=== PATIENT | female | born 1955 | race Caucasian/White ===

== ENCOUNTER 2021-06-17 17:02 | Emergency (ER) | payer BC, MEDICARE ==
[~2021-06-17] VITALS: Ht 165.1 cm; Wt 81.0 kg
[2021-06-17 19:28] LABS: BASO % 1 % (0-3); EOS # 0.1 x10^3/uL (0.0-0.7); EOS % 3 % (0-3); HEMATOCRIT 38.8 % (36.0-47.0); HEMOGLOBIN 12.9 g/dL (12.0-15.5); LYMPH # 0.9 x10^3/uL (1.0-4.8); LYMPH % 32 % (24-48); MEAN CORPUSCULAR HEMOGLOBIN 30 pg (25-35); MEAN CORPUSCULAR HGB CONC 33 g/dL (31-37); MEAN CORPUSCULAR VOLUME 91 fL (79-100); MONO # 0.4 x10^3/uL (0.0-1.1); MONO % 16 % (0-9); NEUT # 1.3 x10^3uL (1.8-7.7); NEUT % 48 % (31-73); PLATELET COUNT 168 x10^3/uL (140-400); RED BLOOD COUNT 4.26 x10^6/uL (3.50-5.40); RED CELL DISTRIBUTION WIDTH 12.3 % (11.5-14.5); WHITE BLOOD COUNT 2.8 x10^3/uL (4.0-11.0)
[2021-06-17 19:42] LABS: CALCIUM 8.6 mg/dL (8.5-10.1); CREATININE 0.9 mg/dL (0.6-1.0); GFR 62.6; POTASSIUM 4.2 mmol/L (3.5-5.1)
--- NOTE | 2021-06-17 19:44 | RAD ---
INDICATION: Reason: sob, cough / Spl. Instructions: / History: COMPARISON: None. FINDINGS: Single view of chest obtained. Left lung base is not well evaluated secondary to overlying cardiac silhouette obscuring. Degenerative changes the spine with osteophyte formation. Degenerative changes spine IMPRESSION: * Left lung base is not well evaluated secondary to overlying cardiac silhouette obscuring but no de finite focal airspace consolidation elsewhere in the lungs. Electronically signed by: Randy Meehan MD (06/17/2021 7:42 PM) [id number]
--- NOTE | 2021-06-17 19:59 | PHYS DOC ---
Past History Past Surgical History: Cholecystectomy, Hysterectomy (CARMEN GUNN APRN) Alcohol Use: None (CARMEN GUNN APRN) General Adult EDM: Chief Complaint: COUGH HPI: HPI: Patient is a 65-year-old female presents with cough for 1 week. Patient states that she tested positive yesterday for Covid. "Me and my has been both tested positive and my daughter and son-in-law all are sick as well". Denies fever. Reports productive cough. Denies shortness of breath or chest pain. History of hypertension and diabetes. (CARMEN GUNN APRN) Review of Systems: Review of Systems: Constitutional: Denies fever or chills Eyes: Denies change in visual acuity HENT: Denies nasal congestion or sore throat Respiratory: Reports cough. Denies shortness of breath Cardiovascular: Denies chest pain or edema GI: Denies abdominal pain, nausea, vomiting, bloody stools or diarrhea : Denies dysuria Musculoskeletal: Denies back pain or joint pain Integument: Denies rash Neurologic: Denies headache, focal weakness or sensory changes Endocrine: Denies polyuria or polydipsia Lymphatic: Denies swollen glands Psychiatric: Denies depression or anxiety (CARMEN GUNN APRN) Allergies: Allergies: Allergies Coded Allergies Type Severity Reaction Last Updated Verified erythromycin base Allergy Unknown 06/17/21 Yes ketorolac Allergy Unknown 06/17/21 Yes sulfamethoxazole Allergy Unknown 06/17/21 Yes trimethoprim Allergy Unknown 06/17/21 Yes (CARMEN GUNN APRN) Physical Exam: PE: Constitutional: Well developed, well nourished, no acute distress, non-toxic appearance. [] HENT: Normocephalic, atraumatic, bilateral external ears normal, oropharynx moist, no oral exudates, nose normal. [] Eyes: PERRLA, EOMI, conjunctiva normal, no discharge. [] Neck: Normal range of motion, no tenderness, supple, no stridor. [] Cardiovascular:Heart rate regular rhythm, no murmur [] Lungs & Thorax: Bilateral breath sounds clear to auscultation [] Abdomen: Bowel sounds normal, soft, no tenderness, no masses, no pulsatile masses. [] Skin: Warm, dry, no erythema, no rash. [] Back: No tenderness, no CVA tenderness. [] Extremities: No tenderness, no cyanosis, no clubbing, ROM intact, no edema. [] Neurologic: Alert and oriented X 3, normal motor function, normal sensory function, no focal deficits noted. [] Psychologic: Affect normal, judgement normal, mood normal. [] (CARMEN GUNN APRN) Current Patient Data: Labs: Laboratory Tests Test 06/17/21 19:16 White Blood Count 2.8 x10^3/uL (4.0-11.0) L Red Blood Count 4.26 x10^6/uL (3.50-5.40) Hemoglobin 12.9 g/dL (12.0-15.5) Hematocrit 38.8 % (36.0-47.0) Mean Corpuscular Volume 91 fL (79-100) Mean Corpuscular Hemoglobin 30 pg (25-35) Mean Corpuscular Hemoglobin Concent 33 g/dL (31-37) Red Cell Distribution Width 12.3 % (11.5-14.5) Platelet Count 168 x10^3/uL (140-400) Neutrophils (%) (Auto) 48 % (31-73) Lymphocytes (%) (Auto) 32 % (24-48) Monocytes (%) (Auto) 16 % (0-9) H Eosinophils (%) (Auto) 3 % (0-3) Basophils (%) (Auto) 1 % (0-3) Neutrophils # (Auto) 1.3 x10^3uL (1.8-7.7) L Lymphocytes # (Auto) 0.9 x10^3/uL (1.0-4.8) L Monocytes # (Auto) 0.4 x10^3/uL (0.0-1.1) Eosinophils # (Auto) 0.1 x10^3/uL (0.0-0.7) Basophils # (Auto) 0.0 x10^3/uL (0.0-0.2) D-Dimer (Ginger) 0.40 mg/L (0.00-0.50) Sodium Level 135 mmol/L (136-145) L Potassium Level 4.2 mmol/L (3.5-5.1) Chloride Level 101 mmol/L (98-107) Carbon Dioxide Level 29 mmol/L (21-32) Anion Gap 5 (6-14) L Blood Urea Nitrogen 21 mg/dL (7-20) H Creatinine 0.9 mg/dL (0.6-1.0) Estimated GFR (Cockcroft-Gault) 62.6 Glucose Level 130 mg/dL (70-99) H Calcium Level 8.6 mg/dL (8.5-10.1) Vital Signs: Vital Signs Date Time Temp Pulse Resp B/P (MAP) Pulse Ox O2 Delivery O2 Flow Rate FiO2 06/17/21 19:30 80 16 130/70 (90) 97 Room Air 06/17/21 17:40 98.4 (CARMEN GUNN APRN) EKG: EKG: [] (CARMEN GUNN APRN) Radiology/Procedures: Radiology/Procedures: []INDICATION: Reason: sob, cough / Spl. Instructions: / History: COMPARISON: None. FINDINGS: Single view of chest obtained. Left lung base is not well evaluated secondary to overlying cardiac silhouette obscuring. Degenerative changes the spine with osteophyte formation. Degenerative changes spine IMPRESSION: * Left lung base is not well evaluated secondary to overlying cardiac si lhouette obscuring but no definite focal airspace consolidation elsewhere in the lungs. Electronically signed by: Randy Meehan MD (06/17/2021 7:42 PM) [id number] (CARMEN GUNN APRN) Heart Score: C/O Chest Pain: No Risk Factors: Risk Factors: DM, Current or recent (<one month) smoker, HTN, HLP, family histo ry of CAD, obesity. Risk Scores: Score 0 - 3: 2.5% MACE over next 6 weeks - Discharge Home Score 4 - 6: 20.3% MACE over next 6 weeks - Admit for Clinical Observation Score 7 - 10: 72.7% MACE over next 6 weeks - Early Invasive Strategies (CARMEN GUNN APRN) Course & Med Decision Making: Course & Med Decision Making Pertinent Labs and Imaging studies reviewed. (See chart for details) [] 65-year-old female presents with a cough for 1 week. Patient tested positive for Covid yesterday. Patient being seen. She is concerned she has pneumonia. Denies shortness of breath. Denies Covid vaccination. Patient is hemodynamically stable. Chest x-ray unremarkable. All labs unremarkable. D-dimer is negative. Instructed patient to continue drinking plenty of fluids. Treating fever and chills with Tylenol and Motrin. Follow-up with PCP for further management. Return to emergency room with worsening symptoms or concerns. Patient is hemodynamically stable upon disposition. (CARMEN GUNN APRN) Veena Disclaimer: Veena Disclaimer: This electronic medical record was generated, in whole or in part, using a voice recognition dictation system. (CARMEN GUNN APRN) Departure Departure: Impression: Primary Impression: COVID-19 Additional Impression: Cough Disposition: HOME / SELF CARE / HOMELESS Condition: STABLE Referrals: PCP,NO (PCP) Patient Instructions: Cough, Adult, [id number] Additional Instructions: You were seen in the emergency room for a cough after being diagnosed with Covid. Chest x-ray was unremarkable. All of your labs were unremarkable. Please continue to quarantine. Make sure you are drinking plenty of fluids. Ibuprofen and Tylenol for fever or chills. Follow-up with your PCP. Return to emergency room if you have worsening symptoms or concerns. EMERGENCY DEPARTMENT GENERAL DISCHARGE INSTRUCTIONS Thank you for coming to [facility] (ED) today and trusting us with you care. We trust that you had a positivie experience in our Emergency Department. If you wish to speak to the department management, you may call the director at [phone]. YOUR FOLLOW UP INSTRUCTIONS ARE FOLLOWS: 1. Do you have a private Doctor? If you do not have a private doctor, please ask for a resource list of physicians or clinics that may be able to assist you with follow up care. 2. The Emergency Physician has interpreted your x-rays. The X-Ray specialist will also review them. If there is a change in the findings, you will be notified in 48 hours when at all possible. 3. A lab test or culture has been done, your results will be reviewed and you will be notified if you need a change in treatment. ADDITIONAL INSTRUCTIONS AND INFORMATION: 1. Your care today has been supervised by a physician who is specially trained in emergency care. Many problems require more than one evaluation for a complete diagnosis and treatment. We recommend that you schedule your follow up appointment as recommended to ensure complete treatment of you illness or injury. If you are unable to obtain follow up care and continue to have a problem, or if your condition worsens, we recommend that you return to the ED. 2. We are not able to safely determine your condition over the phone nor are we able to give sound medical advice over the phone. For these safety reasons, if you call for medical advice we will ask you to come to the ED for further evaluation. 3. If you have any questions regarding these discharge instructions please call the ED at [phone]. SAFETY INFORMATION: In the interest of safety, wellness, and injury prevention; we encourage you to wear your sealbelt, if you smoke; quite smoking, and we encourage family to use a protective helmet for bicycling and other sporting events that present an increased risk for head injury. IF YOUR SYMPTOMS WORSEN OR NEW SYMPTOMS DEVELOP, OR YOU HAVE CONCERNS ABOUT YOUR CONDITION; OR IF YOUR CONDITION WORSENS WHILE YOU ARE WAITING FOR YOUR FOLLOW UP APPOINTMENT; EITHER CONTACT YOUR PRIMARY CARE DOCTOR, THE PHYSICIAN WHOSE NAME AND NUMBER YOU WERE GIVEN, OR RETURN TO THE ED IMMEDIATELY. Attending Signature Attending Signature I have participated in the care of this patient and I have reviewed and agree with all pertinent clinical information above including history, exam, and recommendations. (KALYANI CLEMENT MD) CARMEN GUNN TRAFFIC INCIDENT MANAGEMENT MANAGER Jun 17, 2021 19:59 KALYANI CLEMENT MD Jun 23, 2021 08:03
[2021-06-17 21:28] VITALS: BP 133/74
--- NOTE | 2021-06-17 21:36 | EKG ---
[address] [address] Test Date: 2021-06-17 Test Time: 19:23:33 Pat Name: ISIS HARO Department: Room: Gender: F Property Handler: : [id number] Requested By: CARMEN GUNN Order Number: [id number] Reading MD: Measurements Intervals [place] Rate: 77 P: 39 DC: 184 QRS: 31 QRSD: 86 T: 37 QT: 370 QTc: 420 Interpretive Statements SINUS RHYTHM NORMAL ECG RI6.02 No previous ECG available for comparison
== END 2021-06-17 21:29 | disposition home or self-care (01) ==
LOC: ER 17:02
DX: U07.1 COVID-19 (principal); Z88.1 Allergy status to other antibiotic agents; Z88.2 Allergy status to sulfonamides; Z88.8 Allergy status to other drugs, medicaments and biological substances
CPT/HCPCS: 36415; 71045; 80048; 84484; 85025; 85379; 93005; 99285